=== PATIENT | female | born 1965 | race Caucasian/White ===

== ENCOUNTER 2018-09-06 07:36 | Inpatient (IN) ==
--- NOTE | 2018-08-10 15:40 | PAT Medication Instructions ---
Medication Instructions Date of Service August 10, 2018 Home Medications ibuprofen 400 - 600 mg PO BID PRN ASK your surgeon for instructions ibuprofen 400 - 600 mg PO BID PRN Other Notes If you have any questions please call us at [phone] or [phone] or [phone] or [phone]
--- NOTE | 2018-08-11 14:08 | Anesthesiology Consultation ---
Date of Service August 11, 2018 Assessment & Plan (1) Encounter for pre-operative examination: - Patient anxious RE: SAB. Discussed SAB vs. GA; Patient requests heavier sedation if possible ("does not want to hear surgery")* - PCP: 07/27/18: Chronic idiopathic urticaria. "Takes prednisone if her face or eyes swell." "Medically cleared and low risk for left hip replacement." - Remotely followed with allergy/immunology (last seen in 2010). Per director of restaurant records, hx intermittent eyelid angioedema. No recent lip swelling. Per patient, episodes now much less frequent and resolved with prednisone 10mg PRN (per patient, she has not had issue/need for steroid x several months). Case discussed with Dr. Vincent/Dr. Rodriguez- feel nothing further needed prior to surgery. Chart Review Chart Review: Acceptable Risk for Surgery and Patient seen in Pre Admission Testing Teaching & Discussion Pre-Anesthesia Teaching/Discussion Notes: Instructed NPO after midnight before surgery,except medications with 15 cc of water. Medication instructions provided according to the PAT guidelines. History Surgery Operation Date: 09/06/18 13:20 Proposed Procedures p Left Total Hip Arthroplasty - Nigel Villegas MD Height/Weight Height: 5 ft 4 in Weight: 62.1 kg Allergies Allergy/AdvReac Type Severity Reaction Status Date / Time nickel Allergy Mild SKIN Verified 08/11/18 14:10 IRRITATION diphtheria, pertussis, Allergy Unknown "SWELLING" Verified 08/11/18 14:10 tetanus vacc A CHILD positive skin test Allergy August Uncoded 08/11/18 15:02 grass,yohannes,ragweed,pigweed,aspergillus,dust mite,cat Medications Home Medications Medication Instructions Recorded Confirmed Last Taken ibuprofen 400 - 600 mg PO BID PRN 06/27/18 08/02/18 Unknown Past Medical History Medical History Anxiety Chronic idiopathic urticaria STABLE. MONITORED BY PCP. LAST FLARE OF EYE SWELLING SEVERAL MONTHS AGO- RESOLVED WITH PREDNISONE 10MG PRN GERD (gastroesophageal reflux disease) CONTROLLED Exercise / Class Metabolic Activity III < 4 Walking/Shop/Light housework Past Family History Family History Mother Family history of diabetes mellitus Brother Family history of diabetes mellitus Sister Family history of diabetes mellitus Past Surgical History Surgical History History of facial surgery JAW RECONSTRUCTION ("GOOD ROM") Hx of elbow surgery Past Anesthesia History No Hx of Anesthesia Complications and No Family Hx of Anesthesia Complications History of PONV No Hx of PONV and Hx of Motion Sickness (OCCASIONAL) Social History Smoking Status: Never smoker Do You Dip or Chew Tobacco: No Hx Alcohol Use: Yes Alcohol type: hard liquor alcohol intake frequency: a few times a month Hx Substance Use: No substance use type: does not use Review of Systems Patient denies chest pain, shortness of breath, cough, wheezing, palpitations. Physical Exam Vital Signs VITALS BP 106/71 P 76 TEMP 98.5 SP02 97% RESP 16 PHYSICAL Full neck and c-spine range of motion. Full TMJ range of motion. TMD 3 finger breaths Mallampati Score 1 Dentition: intact, crowns several "all over" Lungs: clear throughout to auscultation Cardiac: regular rate and rhythm, no murmurs noted Spine: normal Carotid arteries: negative bruit Extremities: no edema Testing Laboratory Results 08/11/18 14:40 08/11/18 14:40 08/11/18 08/11/18 14:40 14:40 PT 10.0 INR 1.0 APTT 25.4 Urine Color Yellow Urine Appearance Clear Urine pH 5.0 Ur Specific [place] 1.012 Urine Protein Negative Urine Glucose (UA) Negative Urine Ketones Negative Urine Nitrite Negative Ur Leukocyte Esterase Negative 08/11/18 HGBA1C 5.5% T&S A+Ab- Electrocardiogram Date: 08/11/18 Findings: + NSR @ (70) Chest X-Ray Date: 08/11/18 Findings: + NAD
--- NOTE | 2018-08-11 15:02 | XRay Report ---
XR chest Pre-admission PA/Lat CLINICAL HISTORY: Preoperative evaluation. COMPARISON STUDY: No previous studies for comparison. FINDINGS: Lung volumes are normal. The lungs are clear. There is no pneumothorax or pleural effusion. Cardiac size is normal. Mediastinal contours are normal. There is no evidence for pulmonary edema. IMPRESSION: No acute cardiopulmonary findings. Electronically signed by: Renato Aguilar M.D. 08/11/2018 3:01 PM
[2018-08-11 15:35] LABS: Basophils # (auto) 0.03 K/uL (0-0.2); Basophils % (auto) 0.6 %; Eosinophils % (auto) 2.1 %; Hematocrit (blood only) 38.7 % (37-47); Hemoglobin 13.2 g/dL (12.0-16.0); Immature Granulocytes # (auto) 0.01 K/uL (0.00-0.02); Immature Granulocytes % (auto) 0.2 %; Lymphocytes # (auto) 1.38 K/uL (1.2-3.4); Lymphocytes % (auto) 29.3 %; Mean Corpuscular Hgb Conc 34.1 g/dL (32-36); Mean Corpuscular Volume 88.2 fL (80-100); Mean Platelet Volume 9.7 fL (7.4-10.4); Monocytes # (auto) 0.32 K/uL (0.11-0.59); Monocytes % (auto) 6.8 %; Neutrophils # (auto) 2.87 K/uL (1.4-6.5); Platelet Count 322 K/uL (130-400); RDW Coefficient of Variation 12.1 % (11.5-14.5); RDW Standard Deviation 38.8 fL (36.4-46.3); Red Blood Count 4.39 M/uL (4.2-5.4); White Blood Count 4.71 K/uL (4.8-10.8)
[2018-08-11 15:48] LABS: Partial Thromboplastin Ratio 0.9; Partial Thromboplastin Time 25.4 Seconds (21.0-31.0)
[2018-08-11 15:49] LABS: Albumin Level 3.8 gm/dl (3.4-5.0); BUN Creatinine Ratio 12.1 (10-20); Calcium 9.6 mg/dl (8.5-10.1); Creatinine Clr Calc Pharmacy 67.6 ml/min; Est GFR (Non-African American) 79.3; Potassium 4.1 mmol/L (3.5-5.1)
[2018-08-11 15:56] LABS: Appearance Urine Clear (Clear); Bilirubin Urine Negative (Negative); Blood Urine Negative (Negative); Color Urine Yellow; Glucose Urine UA Negative (Negative); Ketones Urine Negative (Negative); Leukocyte Esterase Urine Negative (Negative); Nitrite Urine Negative (Negative); Protein Urine Negative (Negative); Specific Gravity Urine 1.012 (1.000-1.030); Urobilinogen Urine Negative (Negative)
[2018-08-12 06:24] LABS: Estimated Average Glucose 111 mg/dl; Hemoglobin A1C 5.5 % (4.5-5.6)
--- NOTE | 2018-09-05 16:00 | History and Physical Report ---
DATE OF ADMISSION: 09/06/2018 CHIEF COMPLAINT: Chronic left hip pain. HISTORY OF PRESENT ILLNESS: This is a 53-year-old female patient of Dr. Villegas'taya complaining of chronic left hip pain, longstanding, now progressively getting worse. The patient has been diagnosed with end-stage osteoarthritis per clinical and radiographic exams. The patient has failed conservative treatment including anti-inflammatories and home exercise program directed by her physician. The patient has increased pain with weightbearing activities and her pain does interfere with her activities of daily living. The patient wished to proceed with a left total hip arthroplasty. PAST MEDICAL HISTORY: Anxiety, osteoarthritis, TMJ, chronic idiopathic urticaria. SOCIAL HISTORY: Nonsmoker, nondrinker. PAST SURGICAL HISTORY: Jaw reconstruction and left elbow surgery. FAMILY HISTORY: Noncontributory. REVIEW OF SYSTEMS: Chronic left hip pain. Otherwise, denies any shortness of breath, chest pain, nausea, vomiting or any other joint complaints. MEDICATIONS: 1. Prednisone 10 mg daily as needed. 2. Ibuprofen 600 mg 3 times daily as needed. 3. Prednisone Intensol 1 mL by mouth daily. ALLERGIES: DPT INJECTION AND NICKEL. PHYSICAL EXAMINATION: GENERAL: Well-developed, well-nourished 53-year-old female in no acute distress. She is alert and oriented x3 and pleasant. HEENT: Normocephalic, atraumatic. Extraocular motions are intact. Pupils are equal and reactive to light. HEART: Regular rate and rhythm, no murmurs. LUNGS: Clear. ABDOMEN: Soft, nontender, bowel sounds present. LEFT HIP: She has pain with internal or external rotation passively. Leg length is about 1-2 cm shorter on the affected side. She has 5/5 strength with pain. NEUROLOGIC: Neurovascularly, she is intact in her left lower extremity. DIAGNOSES: Left hip end-stage osteoarthritis, anxiety, osteoarthritis, TMJ, chronic idiopathic urticaria. PLAN: The patient was advised of her diagnosis. Indications, risks, benefits, postop course have all been reviewed. The patient wished to proceed with a left total hip arthroplasty. Necessary consent forms, preoperative testing and clearances will be obtained.
[~2018-09-06 07:36] MED LIST: ACETAMINOPHEN 500 MG TAB PO SCH; BUPIVACAINE 0.5 % 5 MG/1 ML PF 10ML VIAL ONE; CEFAZOLIN 1000MG 1,000 MG/7.5 ML SYR IV SCH; CeleBREX 200 MG CAP PO SCH; FAMOTIDINE 20 MG TAB PO SCH; GABAPENTIN 300 MG x 3 PO SCH; LR 500ML BOLUS, THEN 15ML/HR IV SCH; ROPIVACAINE 0.5% HCL/PF 150 MG, BUPIVACAINE 0.5% MPF 30 ML, EPINEPHrine 30MG/30ML (OR U... INFIL SCH; TRANEXAMIC ACID 1,000 MG **IV Intra-op IV SCH; TRANEXAMIC ACID 1,000 MG **IV Pre-op IV SCH; dexAMETHasone 4 MG TAB PO SCH
[2018-09-06] MEDS ORDERED: MIDAZOLAM HCL 1 MG/ML 2ML VIAL ONE ×3 (08:33→08:50)
--- NOTE | 2018-09-06 08:35 | History & Physical Bridge Note ---
Date of Service September 06, 2018 History & Physical Bridge Note I have examined the patient, reviewed the History & Physical and in the interval since the performance of the History & Physical I have noted the following changes of clinical significance: no changes noted
[2018-09-06] MEDS ORDERED: ATROPINE SULFATE 0.1 MG/ML 10ML SYR IV PRN (08:43)
[2018-09-06] MEDS ORDERED: fentaNYL citrate 100 MCG/2 ML VIAL IV PRN (08:43)
[2018-09-06] MEDS ORDERED: ePHEDrine sulfate 50 MG/ML AMP IV PRN (08:43)
[2018-09-06] MEDS ORDERED: BACITRACIN INJ 50,000 UNIT VIAL ONE (09:15)
[2018-09-06] MEDS ORDERED: ORTHO JOINT ANESTHETIC ONE (09:15)
[2018-09-06] MEDS ORDERED: ONDANSETRON INJ 2 MG/ML 2 ML VIAL ONE (11:59)
[2018-09-06] MEDS ORDERED: PROPOFOL IV EMULSION 10 MG/ML 20 ML VIAL IV ONE (11:59)
[2018-09-06] MEDS ORDERED: LIDOCAINE HCL 2% 2 ML VIAL/AMP(20MG/ML) INFIL ONE (11:59)
[2018-09-06] MEDS ORDERED: DEXAMETHASONE SOD INJ 4 MG/ML VIAL ONE (11:59)
--- NOTE | 2018-09-06 12:12 | Post Operative Brief Note ---
Immediate Post Op Note v1 Date of Surgery September 06, 2018 Pre & Post Diagnosis Operation Date: 09/06/18 10:20 Pre-Op Diagnosis: Left Hip Degenerative Joint Disease osteoarthritis Post-Op Diagnosis: Left Hip Degenerative Joint Disease osteoarthritis Procedure Operation Date: 09/06/18 10:20 Actual Procedures p Left Total Hip Arthroplasty(Left) - Nigel Villegas MD Surgeon Nigel Villegas MD Teletype Adjuster Ken MUNSON Estimated Blood Loss 75 Findings Consistent with Post-Op Diagnosis Specimens Femoral head Drains Hemovac Drain Anesthesia Type MAC Spinal Regional Complications none Disposition Accompanied Patient To Recovery: No Disposition: Recovery Room Overlapping Procedure I was present for: the critical portions of procedure.
[2018-09-06] MEDS ORDERED: ACETAMINOPHEN 1000 MG/100 ML IV IV ONE (13:03)
--- NOTE | 2018-09-06 13:03 | XRay Report ---
XR hip 1V LT w pelvis CLINICAL HISTORY: IN PACU - A/P PELVIS and LATERAL HIP COMPARISON: None. DISCUSSION: Total left hip arthroplasty. The prosthetic is in good position. Good contact between the metallic prosthetic in an Bone. Expected postoperative soft tissue change. IMPRESSION: Anatomic alignment posttotal left hip arthroplasty. The above report was generated using voice recognition software. It may contain grammatical, syntax or spelling errors. Electronically signed by: Ken Lu M.D. 09/06/2018 1:01 PM
[2018-09-06] MEDS ORDERED: ACETAMINOPHEN 1,000 MG/100 ML VIAL IV STA (13:07)
--- NOTE | 2018-09-06 13:45 | Anesthesiology Progress Note ---
Date of Service September 06, 2018 Anesthesia Post Procedure Vital Signs Vital Signs: Temp Pulse Pulse Resp BP Pulse Ox 09/06/18 13:20 76 19 116/78 100 09/06/18 13:10 36.2 C L 73 18 118/81 100 09/06/18 13:00 87 17 118/89 99 09/06/18 12:50 78 17 122/86 100 09/06/18 12:42 36.8 C 92 H 12 121/81 100 09/06/18 08:34 36.8 C 78 18 141/93 H 100 Pain Intensity Left Hip: Pain Intensity: 2 Back: Pain Intensity: 3 Transfer of Care Handoff Completed per policy Notes Mental Status: alert / awake / arousable Patient Amnestic to Procedure: Yes Nausea / Vomiting: adequately controlled Pain: adequately controlled Airway Patency, RR, SpO2: stable & adequate BP & HR: stable & adequate Hydration State: stable & adequate Neuraxial Anesthesia: was administered and sensory block is resolving Anesthetic Complications: no major complications apparent and Pt Satisfied with anesthetic care
[2018-09-06] MEDS ORDERED: ONDANSETRON INJ 2 MG/ML 2 ML VIAL IV PRN (13:49)
[2018-09-06] MEDS ORDERED: MAGNESIUM HYDROXIDE SUSP 30 ML UDC PO PRN (13:49)
[2018-09-06] MEDS ORDERED: OXYCODONE HCL IR 5 MG TAB (IMMEDIATE RELEASE) PO PRN (13:49)
[2018-09-06] MEDS ORDERED: PREDNISONE 10 MG PO SCH (13:49)
[2018-09-06] MEDS ORDERED: NALOXONE HCL 0.4 MG/1 ML VIAL/CARP IV PRN (13:49)
[2018-09-06] MEDS ORDERED: BISACODYL 10 MG SUPP PR PRN (13:49)
[2018-09-06] MEDS ORDERED: HYDROmorphone INJ 0.5 MG/0.5 ML SYR IV PRN (13:49)
[2018-09-06] MEDS: CEFAZOLIN 1000MG 1,000 MG/7.5 ML SYR IV SCH (18:20)
--- NOTE | 2018-09-06 19:53 | Operative Report ---
Post Operative Report Pre & Post Diagnosis Operation Date: 09/06/18 10:20 Pre-Op Diagnosis: Left Hip Degenerative Joint Disease Post-Op Diagnosis: Left Hip Degenerative Joint Disease Procedure Operation Date: 09/06/18 10:20 Actual Procedures p Left Total Hip Arthroplasty(Left) - Nigel Villegas MD Surgeon Nigel Villegas MD Press Box Custodian Ken MUNSON Estimated Blood Loss 75 Findings Consistent with Post-Op Diagnosis Specimens Femoral head Drains 2 Hemovac Anesthesia Type Spinal MAC Complications none Disposition Accompanied Patient To Recovery: No Disposition: Recovery Room Indications 53-year-old female with progressive osteoarthritis of left hip failed conservative management. Patient's hip pain is severe and affecting all of her daily activities of living. Radiographs demonstrate advanced osteoarthritis her left hip joint with hip impingement and osteophytes. Description of Procedure Patient taken to the operating room and anesthetized under spinal anesthesia and sedation. Patient was placed supine on the operating table. Exam of the involved extremity demonstrated that she had good range of motion despite the severity of her hip arthritis. There is minimal shortening of the left leg. She did have some fat collection in the lateral hip area but was otherwise relatively thin individual. The patient was placed on a sacral pad and the involved leg was placed on a foot bump to flex knee 90 and hip 60. A Barrera-type approach was performed to the hip. A longitudinal lateral incision was made over the hip. The skin was incised sharply. The fat was divided down to the fascia. Subcutaneous bleeders are cauterized. Trochanteric bursa was resected. A split was made in the gluteus medius muscle between the anterior 40% and posterior 60%. The minimus was divided longitudinally reflected off the underlying capsule. The capsule was incised down to the hip joint. Upon incising the hip joint patient had a large joint effusion with some bloody effusion noted. There were neck osteophytes about the femoral neck. An incision was made through the gluteus medius leaving a cuff of tendon for repair on the greater trochanter. The vastus lateralis was split longitudinally for about 3 cm. A muscular capsular flap was elevated off the hip. The hip was dislocated with use of bone hook and with flexion and external rotation of the hip. The femoral neck cut was made approximately 15 mm proximal to the lesser trochanter in neutral anteversion. Head and neck fragment were removed. The f emoral head demonstrated advanced osteoarthritic wear throughout the femoral head surfaces. There were osteophytes noted as well.. A self-retaining superior tractor was impacted into the ilium, a blunt Brooke retractor was placed anteriorly a double angled inferior retractor was placed on the ischium. The acetabulum demonstrated calcification of the transverse ligament there were superior and anterior osteophytes and inferior osteophytes about the acetabulum as well. The acetabular labrum was resected all osteophytes were resected.The soft tissue in the acetabular fossa was resected. An anterior capsular release was performed. The first reamer was used to medialize reaming to the inner table and then sequential reamers for the acetabulum were used in 2 mm increments up to a size 48 mm shell. I used the ISORG total hip arthroplasty system using a PSL type cup. Trial reduction demonstrated a 48 millimeter cup was the appropriate size and fit. The placement of the final implant was performed after irrigating the acetabulum with antibiotic solution with pulsatile lavage. The position of the cup was approximately 15 anteversion 45 abduction. Good fixation was performed. Two 6.5 mm cancellus screws were placed in the posterior superior quadrant for further fixation through the cup. The acetabular liner was impacted into position. The Trident X3 10 degree polyethylene insert with 32 mm diameter D acetabular liner was used. The retractors removed and attention was taken to the femur. The femur was exposed with flexion external rotation. A Canal reamer was used followed by sequential tapered Accolade 2 broaches up to a size 3. This had a good fit and fill. Trial reduction was performed with a 127 degree neck angle based on preoperative templating. A + 0 neck length gave equal leg lengths and stable range of motion through full flexion flexion adduction and internal rotation and extension and external rotation. The trials removed and after irrigation again and the final implant was impacted which was the Accolade 2 size 3 with 127 degree neck angle. The Biolox ceramic head size 32+0 was used. After final implants replaced the reduction was noted to be stable through full range of motion including complete hip flexion beyond 120 degrees with flexion internal rotation and adduction and external rotation with no instability. There was some shuck noted and reduction was easy but her leg lengths were completely equal and I felt we could eliminate some of the shuck with the capsule repair. Betadine soak was used per protocol. 2 drains were placed deep. These were brought out laterally and connected to Hemovac. The capsule was first repaired with interrupted [id number] #0 Vicryl sutures. The minimus was closed with interrupted [id number] #1 Vicryl sutures. The minimus was repaired to the trochanter with a transosseous #5 FiberWire suture using Michel-Max suture technique. The medius was closed with transosseous #5 FiberWire sutures using Michel Max suture technique. Lateral row soft tissue repair was performed with figure of 8 #2 FiberWire sutures. The medius split was closed with interrupted [id number] #1 Vicryl sutures. The vastus lateralis was closed with interrupted figure of eight #1Vicryl sutures. The fascia maria was closed with interrupted figure of eight #1 Vicryl sutures. The fat was closed with [id number] #2 Vicryl sutures. Skin was closed with cam and sterile dressings were applied. The patient tolerated procedure well. Ken MUNSON, my physician blood donor unit assistant assisted me in the procedure with patient positioning And draping soft tissue retraction instrument management suture management and assisted in the outer layer closure and will participate in the postoperative care the patient. I attest to the content of the Intraoperative Record and any orders documented therein. Any exceptions are noted below.
[2018-09-06] MEDS: SODIUM CHLORIDE 0.9% 1000ML 1,000 ML IV SCH (20:19)
[2018-09-06] MEDS: CeleBREX 200 MG CAP PO SCH (21:27)
[2018-09-06] MEDS: DOCUSATE SODIUM 100 MG CAP PO SCH (21:27)
[2018-09-06] MEDS: ASPIRIN 81 MG ECTAB PO SCH (21:28)
[2018-09-06] MEDS: ACETAMINOPHEN 500 MG TAB PO SCH (21:28)
[2018-09-06] MEDS: SENNA 8.6 MG TAB PO SCH (21:28)
[2018-09-07] MEDS: SODIUM CHLORIDE 0.9% 1000ML 1,000 ML IV SCH (01:13)
[2018-09-07] MEDS: CEFAZOLIN 1000MG 1,000 MG/7.5 ML SYR IV SCH (01:35)
[2018-09-07] MEDS: ACETAMINOPHEN 500 MG TAB PO SCH ×3 (06:07→22:01)
[2018-09-07 06:26] LABS: Calcium 8.4 mg/dl (8.5-10.1); Creatinine Clr Calc Pharmacy 78.7 ml/min; Est GFR (African American) 110.5; Est GFR (Non-African American) 95.4
[2018-09-07 06:28] LABS: Basophils # (auto) 0.01 K/uL (0-0.2); Basophils % (auto) 0.1 %; Hematocrit (blood only) 29.3 % (37-47); Hemoglobin 10.3 g/dL (12.0-16.0); Immature Granulocytes # (auto) 0.01 K/uL (0.00-0.02); Immature Granulocytes % (auto) 0.1 %; Lymphocytes # (auto) 0.83 K/uL (1.2-3.4); Lymphocytes % (auto) 9.7 %; Mean Corpuscular Hgb Conc 35.2 g/dL (32-36); Mean Corpuscular Volume 86.2 fL (80-100); Monocytes # (auto) 0.81 K/uL (0.11-0.59); Monocytes % (auto) 9.5 %; Neutrophils # (auto) 6.91 K/uL (1.4-6.5); Neutrophils % (auto) 80.6 %; Platelet Count 260 K/uL (130-400); White Blood Count 8.57 K/uL (4.8-10.8)
[2018-09-07] MEDS: DOCUSATE SODIUM 100 MG CAP PO SCH ×2 (08:14→20:22)
[2018-09-07] MEDS: ASPIRIN 81 MG ECTAB PO SCH ×2 (08:14→20:22)
[2018-09-07] MEDS: MULTIVITAMIN TAB PO SCH (08:14)
[2018-09-07] MEDS: CeleBREX 200 MG CAP PO SCH ×2 (08:15→20:22)
--- NOTE | 2018-09-07 09:02 | Orthopedic Progress Note ---
Date of Service September 07, 2018 Assessment & Plan (1) Degenerative joint disease of left hip: POD #1, Left LORENA PT/ OT DVT proph- ASA D/C planning- Home w HEP. Subjective POD #1, Doing well, denies sob, cp, n/v. Pain controlled well. Physical Exam Physical Exam: Left hip silverlon and drain c/d/i, no drainage, no erythema. Toes and ankle mobile. No calf tenderness. A&Ox3. Results & Data Vital Signs (Past 12 Hours) Vital Signs Temp Pulse Pulse Resp BP Pulse Ox 09/07/18 07:00 36.7 C 87 18 99/64 L 99 09/07/18 03:14 36.5 C 85 18 105/71 99 09/06/18 23:00 36.5 C 78 18 113/75 98
[2018-09-07] MEDS: SENNA 8.6 MG TAB PO SCH (20:20)
[2018-09-08] MEDS: ACETAMINOPHEN 500 MG TAB PO SCH (05:50)
[2018-09-08 06:49] LABS: Basophils # (auto) 0.03 K/uL (0-0.2); Basophils % (auto) 0.5 %; Eosinophils # (auto) 0.22 K/uL (0-0.5); Eosinophils % (auto) 3.3 %; Hematocrit (blood only) 30.5 % (37-47); Hemoglobin 10.3 g/dL (12.0-16.0); Immature Granulocytes # (auto) 0.01 K/uL (0.00-0.02); Immature Granulocytes % (auto) 0.2 %; Lymphocytes # (auto) 1.43 K/uL (1.2-3.4); Lymphocytes % (auto) 21.7 %; Mean Corpuscular Hgb Conc 33.8 g/dL (32-36); Mean Corpuscular Volume 89.4 fL (80-100); Mean Platelet Volume 9.4 fL (7.4-10.4); Monocytes # (auto) 0.58 K/uL (0.11-0.59); Monocytes % (auto) 8.8 %; Neutrophils # (auto) 4.33 K/uL (1.4-6.5); Neutrophils % (auto) 65.5 %; Platelet Count 235 K/uL (130-400); RDW Coefficient of Variation 12.5 % (11.5-14.5); RDW Standard Deviation 40.4 fL (36.4-46.3); Red Blood Count 3.41 M/uL (4.2-5.4)
[2018-09-08 07:16] LABS: BUN Creatinine Ratio 14.9 (10-20); Calcium 8.3 mg/dl (8.5-10.1); Creatinine Clr Calc Pharmacy 75.6 ml/min; Est GFR (African American) 105.3; Est GFR (Non-African American) 90.8; Potassium 3.9 mmol/L (3.5-5.1)
--- NOTE | 2018-09-08 08:05 | Orthopedic Progress Note ---
Date of Service September 08, 2018 Assessment & Plan (1) Degenerative joint disease of left hip: POD #2, Left LORENA PT/ OT DVT proph- ASA D/C planning- Home w HEP today. Subjective POD #2, Doing well, denies sob, cp, n/v. Pain controlled well. Physical Exam Physical Exam: Left hip silverlon c/d/i, no drainage, no erythema, toes and ankle mobile. A&Ox3. Results & Data Vital Signs (Past 12 Hours) Vital Signs Temp Pulse Pulse Pulse Resp BP BP 09/08/18 06:56 36.7 C 76 77 75 16 120/74 09/08/18 06:25 36.7 C 75 16 120/74 09/07/18 22:55 36.5 C 77 14 92/58 L Pulse Ox 09/08/18 06:56 100 09/08/18 06:25 100 09/07/18 22:55 97
[2018-09-08] MEDS: MULTIVITAMIN TAB PO SCH (09:00)
[2018-09-08] MEDS: DOCUSATE SODIUM 100 MG CAP PO SCH (09:00)
[2018-09-08] MEDS: ASPIRIN 81 MG ECTAB PO SCH (09:00)
[2018-09-08] MEDS: CeleBREX 200 MG CAP PO SCH (09:00)
--- NOTE | 2018-09-20 21:16 | Discharge Summary ---
DATE OF ADMISSION: 09/06/2018 DATE OF DISCHARGE: 09/08/2018 HISTORY OF PRESENT ILLNESS: This is a 53-year-old female patient of Dr. Villegas, is complaining of chronic left hip pain, longstanding, now progressively getting worse. The patient has been diagnosed with end-stage osteoarthritis and had elected to proceed with a left total hip arthroplasty. PAST MEDICAL HISTORY: Anxiety, osteoarthritis, TMJ, chronic idiopathic urticaria. POSTOPERATIVE COURSE: The patient underwent a left total hip arthroplasty on 09/06/2018. She was followed closely with medical consultation, physical therapy, DVT prophylaxis in the form of aspirin and pain medications. The patient did well postoperatively and was discharged home on postoperative day #2. PHYSICAL EXAMINATION: On discharge, left hip Silverlon dressing was clean, dry and intact. There was no redness or drainage. She had no calf tenderness. Negative Homans sign. Toes and ankles were mobile. Neurologically and neurovascularly she is intact in the left lower extremity. DIAGNOSIS: Status post left total hip arthroplasty, anxiety, osteoarthritis, TMJ, chronic idiopathic urticaria. PLAN: The patient was discharged home with a home exercise program. She will continue her preadmission medications with the addition of aspirin twice daily for DVT prophylaxis as well as pain medications as needed. She will follow up with Dr. Villegas as scheduled as an outpatient.
== END 2018-09-08 12:46 | disposition home or self-care (01) | DRG 470 ==
LOC: ASU 07:36 → 3E 12:45